=== PATIENT | female | born 1945 | race Caucasian/White ===

== ENCOUNTER 2016-10-19 22:10 | Observation (INO) | payer OTHER, MEDICARE ==
[~2016-10-19] VITALS: Ht 172.7 cm; Wt 106.6 kg
--- NOTE | 2016-10-19 22:23 | NUR ---
PT BIBA FROM HOME S/P SYNCOPAL EPISODE. PER PT, PT WAS SITTING ON THE TOILET AND SHE REALIZED THAT SHE DID NOT NEED TO VOID OR HAVE A BM; SHE STOOD UP WITH ASSISTANCE FROM HER SHE BECAME DIAPHORETIC, PALE AND EXPERIENCED SYNCOPE FOR APPROX TWO MINUTES ACCORDING TO HER . NO FALL OR HEADSTRIKE. PT ARRIVES ALERT AND ORIENTED.
--- NOTE | 2016-10-19 22:26 | ED SYNCOPE COMPLAINT ---
History of Present Illness General Chief Complaint: Syncope and Near-Syncope Stated Complaint: "PER EMS SYNCOPE EPISODE" Source: patient, family, old records, EMS Exam Limitations: no limitations Vital Signs & Intake/Output Vital Signs & Intake/Output Vital Signs Date Time Temp Pulse Resp B/P B/P Pulse O2 O2 Flow FiO2 Mean Ox Delivery Rate 10/20 0525 97.3 77 20 120/57 95 Room Air 10/19 2223 96.7 80 18 135/68 98 Room Air ED Intake and Output 10/20 0000 10/19 1200 Intake Total 0 Output Total Balance 0 Intake, Oral 0 Patient 235 lb Weight Weight Reported by Patient Measurement Method Allergies Coded Allergies: amoxicillin (From Augmentin) (Intermediate, [facility] 03/29/16) clavulanic acid (From Augmentin) (Intermediate, [facility] 03/29/16) erythromycin base (Intermediate, [facility] 03/29/16) nitrofurantoin (Intermediate, [facility] 03/29/16) Triage Note: PT BIBA FROM HOME S/P SYNCOPAL EPISODE. PER PT, PT WAS SITTING ON THE TOILET AND SHE REALIZED THAT SHE DID NOT NEED TO VOID OR HAVE A BM; SHE STOOD UP WITH ASSISTANCE FROM HER SHE BECAME DIAPHORETIC, PALE AND EXPERIENCED SYNCOPE FOR APPROX TWO MINUTES ACCORDING TO HER . NO FALL OR HEADSTRIKE. PT ARRIVES ALERT AND ORIENTED. Triage Nurses Notes Reviewed? yes HPI: Patient states that she had just finished going to the bathroom and her was helping her stand up from the toilet when suddenly she felt very lightheaded and felt that she was going to pass out. Patient then sat back down on the toilet. Patient's states that she turned very white and her head bobbed to the side. Patient states that she did not pass out and that she could hear her speaking however he says that it appeared that she did pass out for a few seconds. Upon EMS arrival patient was found to be hypotensive. Upon arrival to the emergency department her blood pressure has normalized and her skin color has returned to normal. Patient denies any chest pain or palpitations. There is no nausea or vomiting. She denies any shortness of breath. Past History Travel History Traveled to [place] past 21 day No Medical History Any Pertinent Medical History? see below for history Cardiovascular: hypertension Endocrine: hypothyroidism, Cancer(s): thyroid cancer Surgical History Surgical History: non-contributory Psychosocial History What is your primary language Icelandic Tobacco Use: Never used ETOH Use: occasional use (had 1 drink tonight) Illicit Drug Use: denies illicit drug use Family History Hx Contributory? No Review of Systems Review of Systems Constitutional: Reports: no symptoms. EENTM: Reports: no symptoms. Respiratory: Reports: no symptoms. Cardiovascular: Reports: no symptoms. GI: Reports: no symptoms. Genitourinary: Reports: no symptoms. Musculoskeletal: Reports: no symptoms. Skin: Reports: no symptoms. Neurological/Psychological: Reports: see HPI. All Other Systems: Reviewed and Negative Physical Exam Physical Exam General Appearance: well developed/nourished, alert, awake, anxious, mild distress Head: atraumatic, normal appearance Eyes: Bilateral: PERRL, EOMI. Ears, Nose, Throat: normal pharynx, normal ENT inspection, hearing grossly normal Neck: normal inspection, supple, full range of motion, NO JVD Respiratory: normal breath sounds, chest non-tender, no respiratory distress, lungs clear Cardiovascular: regular rate/rhythm, normal peripheral pulses Gastrointestinal: normal bowel sounds, soft, non-tender, no organomegaly Back: normal inspection, normal range of motion Extremities: normal inspection, normal capillary refill, normal range of motion Psychiatric: awake, alert, oriented x 3 Cranial Nerves: normal hearing, normal speech, PERRL Coordination/Gait: normal finger to nose Core Measures ACS in differential dx? Yes CVA/TIA Diagnosis: No Severe Sepsis Present: No Septic Shock Present: No Progress Differential Diagnosis: AMI, aortic dissection, aortic valve, drug induced syncope, orthostatic syncope, pulmonary embolus, seizure, vasodepressor syncope Plan of Care: Orders Procedure Date/time Status Regular Diet 10/20 B Active TROPONIN LEVEL 10/20 0458 Complete EKG 10/[address] in observation 10/19 2226 Active Patient Data 10/19 2226 Active Vital Signs 10/19 2226 Active Code Status 10/19 2226 Active Telemetry/Curator Of [employer] 10/19 2225 Active TROPONIN LEVEL 10/19 2225 Complete COMPREHENSIVE METABOLIC PANEL 10/19 2225 Complete CBC WITHOUT DIFFERENTIAL 10/19 2225 Complete EKG 10/19 2225 Active Intake & Output 10/20 2223 Active Laboratory Tests 10/20/16 0524: Troponin I < 0.01 10/19/16 2245: Anion Gap 11, Estimated GFR > 60, BUN/Creatinine Ratio 25.0, Glucose 118 H, Calcium 9.6, Total Bilirubin 0.5, AST 18, ALT 32, Alkaline Phosphatase 56, Troponin I < 0.01, Total Protein 6.8, Albumin 4.0, Globulin 2.8, Albumin/ Globulin Ratio 1.4, CBC w Diff NO MAN DIFF REQ, RBC 4.25, MCV 95.0, MCH 31.9 H, RDW 12.9, MPV 8.1, Gran % 68.7, Lymphocytes % 24.1, Monocytes % 5.6, Eosinophils % 1.2, Basophils % 0.4, Absolute Granulocytes 5.1, Absolute Lymphocytes 1.8, Absolute Monocytes 0.4, Absolute Eosinophils 0.1, Absolute Basophils 0, PUBS MCHC 33.6 Initial ED EKG: NSR, no ST T wave changes Prior EKG: unchanged Rhythm Strip: normal sinus rhythm Comments: Patient is on amlodipine for her blood pressure and took her last pill of an Azole for a fungal infection this morning. The combination of this can cause QTC prolongation. Departure Departure Disposition: HOME OR SELF CARE Condition: Stable Clinical Impression Primary Impression: Vasovagal syncope Referrals: MICHAEL ALBA PhD,MADHU DUNCAN MD,TOM (PCP/Family) Additional Instructions: FOLLOW UP WITH DR. MICHAEL ZAFAR IF SYMPTOMS HAPPEN AGAIN OR FOR ANY CONCERNS Departure Forms: Customer Survey General Discharge Information Critical Care Note Critical Care Note Critical Care Time: mins: (45 MIN) ED Attending Observation Initial Observation Note: I have seen and personally examined NIKKIE MADISON on 10/19/16 at 2227. I agree with the current emergency department documentation. The disposition (admission or discharge) is uncertain at this time, she needs a period of observation for the following reason(s): [Telemetry monitoring and serial enzymes after a syncopal episode] The ED Nurse caring for this patient has been personally informed as to what the patient is being observed for. Observation Re-Evaluation: I have reevaluated NIKKIE MADISON on 10/20/16 at 0351. The physical findings that support the continued need to observe this patient include [patient is sleeping comfortably. No further episodes. Lungs are clear to auscultation bilaterally. Cardiac exam shows no murmurs.]. Observation Discharge: I have reevaluated NIKKIE MADISON on 10/20/16 at 0611. The patient is: ([X]): Stable for discharge (): To be admitted to Nursing Floor (): To be placed in Observation on Nursing Floor (): For transfer to other facility The patient was being observed for [dysrhythmia after a syncopal episode. Most likely this was a vasovagal episode given the fact that she had just finished on the toilet and then stood up when her symptoms recurred. She remained sinus rhythm while in the emergency department. No further episodes.] As a result of that observation, I have determined [she is stable for discharge with cardiology follow-up.].
--- NOTE | 2016-10-19 22:33 | NUR ---
PT HAS HX OF PROGRESSIVE SUPRANUCLEAR PALSY.
--- NOTE | 2016-10-19 22:51 | NUR ---
LABS DRAWN AND SENT BY THIS [facility]. BLUE,SST,LAV.
[2016-10-19 23:02] LABS: ABSOLUTE BASOPHIL COUNT 0 /CUMM (0.0-0.2); ABSOLUTE EOSINOPHIL COUNT 0.1 /CUMM (0.0-0.7); ABSOLUTE GRANULOCYTE CT 5.1 /CUMM (1.4-6.5); ABSOLUTE LYMPH COUNT 1.8 /CUMM (1.2-3.4); ABSOLUTE MONOCYTE COUNT 0.4 /CUMM (0.10-0.60); BASOPHIL % 0.4 % (0.0-2.0); EOSINOPHIL % 1.2 % (0-5); GRANULOCYTE % 68.7 % (42.2-75.2); HEMATOCRIT 40.4 % (37-47); MEAN CORPUSCULAR HGB 31.9 PG (27.0-31.0); MEAN CORPUSCULAR HGB CONC 33.6 G/DL (33.0-37.0); MEAN PLATELET VOLUME 8.1 FL (7.4-10.4); PLATELET COUNT 228 /CUMM (130-400); RBC DISTRIBUTION WIDTH 12.9 % (11.5-14.5); RED BLOOD CELL CT 4.25 /CUMM (4.20-5.40); WHITE BLOOD CELL COUNT 7.4 /CUMM (4.8-10.8)
--- NOTE | 2016-10-19 23:50 | NUR ---
PT RESTING ON STRETCHER. NO DISTRESS NOTED. AT BEDSIDE. WILL CONTINUE TO MONITOR.
--- NOTE | 2016-10-20 00:59 | NUR ---
PT CONTINUES TO REST ON STRETCHER. WILL CONTINUE TO MONITOR.
--- NOTE | 2016-10-20 01:54 | NUR ---
PT AWAKE RESTING ON STRETCHER. PT DENIES ANY COMPLAINTS AT THIS TIME. WILL CONTINUE TO MONITOR.
--- NOTE | 2016-10-20 02:54 | NUR ---
PT CONTINUES TO REST ON STRETCHER. NO DISTRESS NOTED. HEART MONITOR REMAINS IN PLACE. WILL CONTINUE TO MONITOR.
--- NOTE | 2016-10-20 05:00 | NUR ---
PT IS RESTING COMFORTABLY ON BED. WILL CONTINUE TO MONITOR. AIR SAMPLING AND MONITORING REMAINS IN PLACE.
--- NOTE | 2016-10-20 06:19 | NUR ---
PT CLEARED FOR DISCHARGE. INSTRUCTIONS GIVEN. PT VERBALIZED UNDERSTANDING. WILL RETURN IF SYMPTOMS WORSEN.
[2016-10-20 06:21] VITALS: BP 132/61
== END 2016-10-20 06:21 ==
LOC: ERH 22:10 → ERHI 22:37
PROVIDERS: ADMIT Emergency Medicine
DX: R55 Syncope and collapse (principal); I10 Essential (primary) hypertension; E03.9 Hypothyroidism, unspecified; Z85.850 Personal history of malignant neoplasm of thyroid
CPT/HCPCS: 6090; 93005; 93010; G0378